=== PATIENT | female | born 1980 | race Caucasian/White ===

== ENCOUNTER → 2016-04-05 | Outpatient (REF) | payer OTHER ==
[2016-04-05 19:05] LABS: FREE T4 1.66 NG/DL (0.76-1.46)
== END ==
LOC: M LABDRAW1 17:08
PROVIDERS: ATTEND Internal Medicine Endocrinology, Diabetes & Metabolism
DX: C73 Malignant neoplasm of thyroid gland (principal)

== ENCOUNTER → 2016-07-17 | Outpatient (REF) | payer OTHER | LOC: M LABDRAW1 16:51 | PROVIDERS: ATTEND Internal Medicine Endocrinology, Diabetes & Metabolism | DX: C73 Malignant neoplasm of thyroid gland (principal) ==

== ENCOUNTER → 2016-07-24 | Outpatient (REF) | payer OTHER | LOC: M LABDRAW1 17:10 | PROVIDERS: ATTEND Internal Medicine Endocrinology, Diabetes & Metabolism | DX: C73 Malignant neoplasm of thyroid gland (principal); E89.0 Postprocedural hypothyroidism ==

== ENCOUNTER → 2016-07-31 | Outpatient (REF) | payer OTHER | LOC: M LABDRAW1 16:02 | PROVIDERS: ATTEND Internal Medicine Endocrinology, Diabetes & Metabolism | DX: C73 Malignant neoplasm of thyroid gland (principal) ==

== ENCOUNTER → 2016-10-18 | Outpatient (REF) | payer OTHER | LOC: M SFHCWAGY 13:41 | PROVIDERS: ATTEND Nurse Practitioner Women's Health | DX: Z12.4 Encounter for screening for malignant neoplasm of cervix (principal) ==

== ENCOUNTER → 2017-02-14 | Outpatient (CLI) | payer OTHER ==
[2017-02-14 11:00] LABS: FREE T4 1.51 NG/DL (0.76-1.46)
== END ==
LOC: M LAB 10:10
PROVIDERS: ATTEND Internal Medicine Endocrinology, Diabetes & Metabolism
DX: C73 Malignant neoplasm of thyroid gland (principal)

== ENCOUNTER → 2017-08-15 | Outpatient (REF) | payer OTHER ==
[2017-08-15 23:46] LABS: FREE T4 1.72 NG/DL (0.76-1.46); THYROID STIMULATING HORMONE 0.012 uIU/ML (0.358-3.740)
== END ==
LOC: M LABDRAW1 12:19
DX: C73 Malignant neoplasm of thyroid gland (principal)

== ENCOUNTER → 2017-08-30 | Outpatient (REF) | payer OTHER ==
[2017-08-30 12:56] LABS: FREE T4 0.48 NG/DL (0.76-1.46)
[2017-08-31 12:09] LABS: THYROGLOBULIN ANTIBODY 19.3 U/ML (<60.0)
== END ==
LOC: M LABDRAW1 10:53
DX: E89.0 Postprocedural hypothyroidism (principal); C73 Malignant neoplasm of thyroid gland

== ENCOUNTER → 2017-10-01 | Outpatient (REF) | payer OTHER | LOC: M LABDRAW1 12:05 | DX: E89.0 Postprocedural hypothyroidism (principal); C73 Malignant neoplasm of thyroid gland ==

== ENCOUNTER → 2017-10-02 | Outpatient (REF) | payer OTHER ==
[2017-10-03 08:41] LABS: THYROGLOBULIN ANTIBODY 26.2 U/ML (<60.0)
[2017-10-11 11:40] LABS: THYROGLOBULIN ANTIBODY <1.8; THYROGLOBULIN TUMOR MARKER <0.1
[2017-10-11 11:41] LABS: THYROGLOBULIN INTERPRETATION SEE SEPARATE REPORT
== END ==
LOC: M LABDRAW1 13:30
DX: E89.0 Postprocedural hypothyroidism (principal); C73 Malignant neoplasm of thyroid gland

== ENCOUNTER → 2017-12-18 | Outpatient (REF) | payer OTHER ==
[2017-12-18 18:45] LABS: FREE T4 1.58 NG/DL (0.76-1.46); THYROID STIMULATING HORMONE 0.021 uIU/ML (0.358-3.740)
== END ==
LOC: M LABDRAW1 16:26
DX: E89.0 Postprocedural hypothyroidism (principal)

== ENCOUNTER → 2017-12-27 | Outpatient (CLI) | payer OTHER | LOC: M RAD 15:38 | DX: C73 Malignant neoplasm of thyroid gland (principal); E89.0 Postprocedural hypothyroidism | CPT/HCPCS: 76536 ==

== ENCOUNTER → 2018-03-15 | Outpatient (REF) | payer OTHER ==
[2018-03-15 18:17] LABS: FREE T4 1.36 NG/DL (0.76-1.46); THYROID STIMULATING HORMONE 0.045 uIU/ML (0.358-3.740)
== END ==
LOC: M LABDRAW1 14:10
PROVIDERS: ATTEND Nurse Practitioner Family
DX: E89.0 Postprocedural hypothyroidism (principal)

== ENCOUNTER → 2018-12-13 | Outpatient (REF) | payer OTHER ==
[2018-12-13 19:36] LABS: FREE T4 1.53 NG/DL (0.76-1.46); THYROID STIMULATING HORMONE 0.02 uIU/ML (0.358-3.740)
[2018-12-17 10:07] LABS: THRYOGLOBULIN ANTIBODIES (ATA) < 1.0 IU/mL (0.0-0.9); THYROGLOBULIN QUANTITATIVE < 0.1 ng/mL (1.5-38.5)
== END ==
LOC: M LABDRAW1 16:56
PROVIDERS: ATTEND Nurse Practitioner Family
DX: E89.0 Postprocedural hypothyroidism (principal); C73 Malignant neoplasm of thyroid gland

== ENCOUNTER → 2019-02-26 | Outpatient (REF) | payer OTHER ==
[2019-02-26 16:09] LABS: FREE T4 1.33 NG/DL (0.76-1.46); THYROID STIMULATING HORMONE 0.259 uIU/ML (0.358-3.740)
== END ==
LOC: M LABDRAW1 11:23
PROVIDERS: ATTEND Internal Medicine Endocrinology, Diabetes & Metabolism
DX: E89.0 Postprocedural hypothyroidism (principal); C73 Malignant neoplasm of thyroid gland

== ENCOUNTER → 2019-10-27 | Outpatient (REF) | payer OTHER ==
[2019-12-10 12:38] LABS: FREE T4 1.31 NG/DL (0.76-1.46); THYROID STIMULATING HORMONE 0.691 uIU/ML (0.358-3.740)
== END ==
LOC: M PLALAB 09:19
PROVIDERS: ATTEND Internal Medicine Endocrinology, Diabetes & Metabolism
DX: E89.0 Postprocedural hypothyroidism (principal)

== ENCOUNTER → 2020-05-14 | Outpatient (CLI) | payer OTHER ==
[2020-05-14 18:28] LABS: FREE T4 1.27 NG/DL (0.76-1.46)
[2020-05-14 18:30] LABS: THYROGLOBULIN ANTIBODY < 15.0 U/ML (<60.0)
== END ==
LOC: M PLALAB 15:23
PROVIDERS: ATTEND Internal Medicine Endocrinology, Diabetes & Metabolism
DX: E89.0 Postprocedural hypothyroidism (principal)

== ENCOUNTER → 2020-06-30 | Outpatient (CLI) | payer OTHER ==
[~2020-06-30] MED LIST: LEVO100T5 PO; LIDOCAINE 1% MDV 20ML VIAL As Ordered ONE; SODIUM BICARBONATE 8.4% INJ 50MEQ 50 ML VIAL As Ordered ONE
[2020-06-30 13:37] VITALS: BP 117/70
--- NOTE | 2020-07-01 16:52 | REP ---
INDICATION: RIGHT LYMPHNODE 1.5CM, HX MALIG NEOPLASM-THYROID. COMPARISON: Ultrasound 06/03/2020 from [facility]. TECHNIQUE: Real-time sonographic evaluation of right neck performed prior to a scheduled ultrasound-guided biopsy the right neck soft tissues. FINDINGS: Previously described lymph node in the right neck soft tissues which was stated to measure 1.5 x 1.1 x 0.4 cm is not seen on today's exam. This likely represented a reactive lymph node. IMPRESSION: Previously noted right neck lymph node is not visualized on today's exam and likely was a reactive lymph node. The scheduled ultrasound-guided biopsy is canceled. <Electronically signed by Murtaza Mckeon > 07/01/20 [id number]
== END ==
LOC: M IRPRO 12:06
PROVIDERS: ATTEND Internal Medicine Endocrinology, Diabetes & Metabolism
DX: Z85.850 Personal history of malignant neoplasm of thyroid (principal); Z08 Encounter for follow-up examination after completed treatment for malignant neoplasm

== ENCOUNTER → 2020-11-29 | Outpatient (CLI) | payer OTHER ==
[~2020-11-29] MED LIST changes: -LIDOCAINE 1% MDV 20ML VIAL As Ordered ONE; -SODIUM BICARBONATE 8.4% INJ 50MEQ 50 ML VIAL As Ordered ONE
[2020-11-29 17:50] LABS: FREE T4 1.3 NG/DL (0.76-1.46); THYROID STIMULATING HORMONE 0.204 uIU/ML (0.358-3.740)
== END ==
LOC: M PLALAB 15:44
PROVIDERS: ATTEND Nurse Practitioner Family
DX: E89.0 Postprocedural hypothyroidism (principal); Z85.850 Personal history of malignant neoplasm of thyroid

== ENCOUNTER → 2021-03-30 | Outpatient (CLI) | payer OTHER | LOC: M RAD 08:45 | PROVIDERS: ATTEND Nurse Practitioner Family | DX: Z85.850 Personal history of malignant neoplasm of thyroid (principal) ==

== ENCOUNTER → 2021-06-17 | Outpatient (CLI) | payer OTHER ==
[2021-06-17 17:59] LABS: FREE T4 1.29 NG/DL (0.76-1.46); THYROID STIMULATING HORMONE 0.089 uIU/ML (0.358-3.740)
== END ==
LOC: M PLALAB 15:28
PROVIDERS: ATTEND Nurse Practitioner Family
DX: E89.0 Postprocedural hypothyroidism (principal); Z85.850 Personal history of malignant neoplasm of thyroid

== ENCOUNTER → 2023-09-12 | Outpatient (REF) | payer OTHER ==
[2023-09-14 09:17] LABS: BVAB 2 NEGATIVE (NEGATIVE)
[2023-09-14 09:22] LABS: CANDIDA ALBICANS NAA NOT DETECTED (NOT DETECTED); CANDIDA GLABRATA NAA NOT DETECTED (NOT DETECTED); TRICH VAG BY NAA NOT DETECTED (NOT DETECTED)
[2023-09-14 10:12] LABS: CHLAMYDIA TRACHOMATIS NAA NOT DETECTED (NOT DETECTED); Neisseria gonorrhoeae NAA NOT DETECTED (NOT DETECTED)
[2023-09-14 12:51] LABS: HPV APTIMA Not Detected (Not Detected)
== END ==
LOC: M SFHCWAGY 17:03 → MERGE 17:03
PROVIDERS: ATTEND Nurse Practitioner Family
DX: Z12.4 Encounter for screening for malignant neoplasm of cervix (principal); N94.10 Unspecified dyspareunia

== ENCOUNTER → 2023-11-02 | Outpatient (CLI) | payer OTHER | LOC: M WHC 08:38 | PROVIDERS: ATTEND Nurse Practitioner Family | DX: N94.10 Unspecified dyspareunia (principal); R93.89 Abnormal findings on diagnostic imaging of other specified body structures ==